=== PATIENT | male | born 1980 | race Caucasian/White ===

== ENCOUNTER 2019-08-10 14:34 | Emergency (ER) | payer SELFPAY ==
[~2019-08-10] VITALS: Ht 175.3 cm; Wt 140.6 kg
[2019-08-10 15:56] VITALS: Ht 175.3 cm; Wt 140.6 kg
[2019-08-10 18:22] LABS: AMPHETAMINE QUAL UR NONE DETECTED (See below)
[2019-08-10 18:27] LABS: CALCIUM 9.4 mg/dL (8.5-10.1); CARBON DIOXIDE 31.3 mmol/L (21-32); CHLORIDE SERUM 100 mmol/L (98-107); GFR1 > 60 mL/min; GLUCOSE SERUM 179 mg/dL (74-106); POTASSIUM SERUM 3.7 mmol/L (3.5-5.1); SODIUM SERUM 137 mmol/L (136-145)
[2019-08-10 18:28] LABS: BASOPHIL % 0.5 % (0-2); PLATELET COUNT 251 x10^3mcL (130-400); RED CELL DISTRIBUTION WIDTH 13.3 % (11.5-14.5)
[2019-08-10 18:32] LABS: ALKALINE PHOSPHATASE 87 U/L (46-116); ALT/SGPT 42 U/L (16-63); AST/SGOT 8 U/L (15-37); BILIRUBIN TOTAL 0.28 mg/dL (0.20-1.00); TOTAL PROTEIN, SERUM 7.9 g/dL (6.4-8.2)
[2019-08-10 19:54] VITALS: BP 117/85
== END 2019-08-10 19:54 | disposition home or self-care (01) ==
LOC: ED 14:34
PROVIDERS: Emergency Medicine
DX: K04.7 Periapical abscess without sinus (principal); R42 Dizziness and giddiness; E11.9 Type 2 diabetes mellitus without complications
CPT/HCPCS: 36415; 82962; Q0092